=== PATIENT | female | born 1960 | race Caucasian/White ===

== ENCOUNTER 2016-10-23 07:35 | Day surgery (SDC) | payer BC ==
--- NOTE | 2016-10-22 13:33 | HISTORY AND PHYSICAL ---
ADMITTED: 10/23/2016 HISTORY OF PRESENT ILLNESS: The patient is a 56-year-old female who presents with a painful right foot. She carried out a bunion of the distal metatarsal osteotomy on 10/11/2015, says that it is healing great. She just noted now that it is starting to feel like it is blocking and she is now also describing pain on the outside of her right foot as well. MEDICAL/SURGICAL HISTORY: Past medical history includes a history of hypertension, elevated cholesterol, pneumonia. Surgical history, varicose veins, blepharoplasty and bilateral foot surgery. PRIMARY CARE PROVIDER: Debby Goode MD MEDICATIONS: 1. Atorvastatin 20 mg tab 1 by mouth daily. ALLERGIES: 1. BACITRACIN 2. NEOMYCIN. 3. POLYMYXIN. SOCIAL HISTORY: She is . Former smoker, drinks socially. FAMILY HISTORY: Positive for hypertension. REVIEW OF SYSTEMS: A 10-point review of systems noncontributory to chief complaint. PHYSICAL EXAMINATION: GENERAL: The patient is oriented x3. HEAD AND NECK: PERRLA. Normocephalic. Pupils reactive to light. HEART: Regular rate and rhythm. Regular S1 and S2. No murmurs or gallops. LUNGS: Clear to auscultation. No wheezes, rhonchi, or rales. ABDOMEN: Soft, tender, nondistended. No palpable masses. Normal tones. LOWER EXTREMITY: Vascular: DP and PT pulses are palpable. Skin texture and turgor are well within normal limits. Subpapillary venous plexus capillary refill within normal limits. Orthopedically, there is crepitus in the right first MTP. There is less than 20 degrees of dorsiflexion noted. There is very prominent lateral eminence of the fifth MTP. Gait is antalgic. LAB/IMAGING: Imaging reveals a sagittal plane elevatus of the first metatarsal head, under fluoroscopy, there is noted abutment of range of motion. Hardware is in place with no complications. Laterally, there was a projection of the fifth metatarsal head and deviation of the fifth MTP. IMPRESSION: 1. Hallux limitus, grade 1. 2. Tailor's bunion or bunionette. PLAN: The patient is consented for a cheilectomy of the right first metatarsal and a fifth metatarsal osteotomy. There are no contraindications to surgery at this time. Surgery is scheduled for an outpatient basis on 10/23/2016.
[~2016-10-23] VITALS: Ht 177.8 cm; Wt 91.4 kg
[~2016-10-23 07:35] MED LIST: ADVIL200 M1 PO; ATORVASTATIN CA20 MG PO; FISH OIL1000 M1; HAIR/SKIN/NAILS PO; LISINOPRIL20 MG PO; OMEGA 3 KRILL OIL PO; TRIAMCINOLONE A0.11; VITAMIN B12100 MCG PO; VITAMIN D-31000 UNIT PO
--- NOTE | 2016-10-23 08:12 | NUR ---
PATIENT ASSESSMENT AND MED/ALLERGY REVIEW COMPLETE. VITALS STABLE. EKG AND LABS OBTAINED. SURGICAL SITE MARKED BY PATIENT. IV STARTED IN L WRIST WITH 1 ATTEMPT. LR INFUSING ON PUMP AT 50ML/HR. PREOP INSTRUCTIONS DISCUSSED. QUESTIONS ENCOURAGED AND ANSWERED BY RN. WILL CONTINUE TO MONITOR.
--- NOTE | 2016-10-23 10:55 | Provider's Discharge Care Plan ---
Problem, Goal, Plan Problem List 1. Hallux valgus (acquired), right foot Goals: Improve function Instructions: Follow up as directed
--- NOTE | 2016-10-23 10:55 | Provider's Discharge Care Plan ---
Problem, Goal, Plan Problem List 1. Hallux valgus (acquired), right foot Goals: Improve function Instructions: Follow up as directed
--- NOTE | 2016-10-23 11:17 | NUR ---
PT IS AWAKE. PT DENIES NAUSEA. PT RIGHT FOOT PAIN IS 6/10 ON A SCALE FROM 0-10. FENTANYL 50 MCG IV X3 Q 5-10 MIN WAS GIVEN FOR PAIN RELIEF. RIGHT FOOT IS ELEVATED ON A PILLOW, ICE PLACED BEHING PT'S RIGHT KNEE PER MD ORDER. PT IS RESTING COMFORTABLY IN STRETCHER.VSS. RIGHT FOOT DRESSING IS CLEAN AND DRY. RIGHT FOOT X-RAY DONE IN PACU.
--- NOTE | 2016-10-23 11:25 | DIAGNOSTIC IMAGING REPORT ---
PROCEDURE: XR FOOT 3 VIEWS - RIGHT INDICATION: POST-OP- IN PACU TECHNIQUE: Three views. COMPARISON: Right foot x-ray 10/11/2015 FINDINGS: New distal right fifth metatarsal corrective osteotomy with a single screw and normal alignment of the fifth ray. Prior bunionectomy and corrective osteotomy of the distal first metatarsal fixated with two screws. Mild first MTP joint degenerative changes. IMPRESSION: 1. Distal left fifth metatarsal corrective osteotomy 2. Prior bunionectomy and first metatarsal corrective osteotomy
--- NOTE | 2016-10-23 11:45 | OPERATIVE REPORT ---
DATE OF SURGERY: 10/23/2016 SURGEON: Dipak Vaca DPM PREOPERATIVE DIAGNOSES: 1. Hallux limitus, grade 1 2. Painful tailor's bunion, bunionette, right foot POSTOPERATIVE DIAGNOSES: 1. Hallux limitus, grade 1 2. Painful tailor's, bunionette, right foot PROCEDURE PERFORMED: 1. Fifth distal metatarsal osteotomy with rigid internal fixation 2. Cheilectomy right first metatarsophalangeal ANESTHESIA: General. HEMOSTASIS: Achieved by pneumatic ankle tourniquet inflated to 250 mmHg pressure. TOURNIQUET TIME: 60 minutes. MATERIALS: Used 3-0 and 4-0 Polysorb, 4-0 Biosyn and one 2.5 headless compression screw by Arthrex 13 mm in length. INJECTABLES: 20 mL of 0.5% bupivacaine plain. COMPLICATIONS: None. CONDITION: The patient tolerated anesthesia and procedure well. INDICATIONS: The patient is a pleasant 56-year-old female who has a painful range of motion of the first MTP of the right. Successfully carried out distal metatarsal osteotomy several years ago; however, it has become progressively more stiff and painful. States she is now is getting pain on the outside of the right foot. In office x- rays revealed a slight first ray elevatus, particularly at the metatarsal head, rectus in the transverse plane is slightly elevated distally. There is also a prominent fifth metatarsal head laterally. She is well aware of the planned procedures are no contraindications to surgery at this time. SURGICAL TECHNIQUE: The patient was brought to the operating room and placed on the table in the supine position. A pneumatic tourniquet was then placed above the right ankle. General anesthetic was administered, right lower extremity was prepped and draped in normal sterile fashion. An intraoperative pause was carried out for positive identification, proper limb, and consent form verified and confirmed, as well as administration of the IV antibiotic. An Esmarch bandage was then utilized to exsanguinate the limb, the tourniquet was then inflated. Attention was directed to procedure #1. Fifth metatarsal distal osteotomy with rigid internal fixation: A linear incision was made on the dorsal lateral aspect of the fifth MTP. It was deepened by sharp and blunt dissection. A capsular incision was made, lateral collateral ligament was released. The long extensor tendon was retracted medially. The hypertrophied lateral eminence was excised via sagittal saw. A guidewire was then driven at the surgical neck transversely and perpendicular to the long axis creating an axis for a triplanar correction. Osteotomy was carried out with an extended long plantar wing. The capital fragment was dislodged and then impacted in the desired and translated desired position in all 3 planes. It was then fixated with standard AO techniques with a 2.5 headless compression screw driven from dorsal proximal to plantar distally. Redundant metatarsal medially was excised. Verified under fluoroscopy for proper placement and anatomical position of the fifth MTP. The area was flushed. The capsule and periosteum were reapproximated with 3-0 Polysorb, subcutaneous with 4-0 and skin edges reapproximated in a running fashion with 4- 0 Biosyn. Attention was then directed to procedure #2. Cheilectomy right first MTP: At this time, a linear incision was made extending along the previous incision and it was taken down to bone. There were significant adhesions noted and irregular scar tissue. The collateral ligament was released medially. Bent Hohmanns were then placed medially and laterally and the capsule incised at the joint. Metatarsal elevators were then utilized to free up the adherence of the sesamoid plantarly. A sagittal saw was then used dorsally and medially to excise the hypertrophied bone. Bone rongeur was then utilized to resect the abnormal border of the dorsal aspect of the base of the proximal phalanx. The area was copiously lavaged and flushed. Capsule was reapproximated with 3-0 Polysorb, the subcutaneous with 4-0, skin edges reapproximated in a running fashion with 4-0 Biosyn. The area was then locally anesthetized with the aforementioned 20 mL of 0.5% bupivacaine plain. The tourniquet was released with reactive hyperemia and good digital perfusion with light compressive dressing applied. The patient tolerated anesthesia and procedure well and left the operating room with vital signs stable. While in recovery, written instructions of touchdown weightbearing with aid of appropriate fracture shoe. Prognosis is guarded. She will be discharged home in stable condition.
--- NOTE | 2016-10-23 12:09 | NUR ---
PATIENT BACK FROM OR- NAUSEATED AND DRY HEAVING. PATIENT ON O2 AND HAS QUEASE EASE ON HAND. R LOWER EXTREMITY ELEVATED WITH ICE APPLIED. COMPLAINT OF 5.5/10 PAIN. 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 WILL CONTINUE TO MONITOR.
--- NOTE | 2016-10-23 13:06 | NUR ---
PATIENT NAUSEATED WITH NARCOTIC PAIN MEDS. SCOPALOMINE PATCH IN PLACE. PATIENT'S NAUSEA BEGINNING TO SUBSIDE. TOLERATING ICE CHIPS. ORDER OBTAINED FROM DR REAL FOR KETOROLAC 30MG IV FOR PAIN CONTROL. WILL CONTINUE TO MONITOR.
--- NOTE | 2016-10-23 13:43 | NUR ---
PATIENT WOKE FROM SLEEPING AND NOW STATES SHE IS NO LONGER NAUSEATED AND IS "FEELING MUCH BETTER." PATIENT STATES PAIN HAS IMPROVED WELL. TRIALING PATIENT ON SALTINE CRACKERS. VITALS STABLE. WILL CONTINUE TO MONITOR.
--- NOTE | 2016-10-23 14:14 | NUR ---
PATIENT DEPARTED SCU WITH FRIEND AT 1413. VITALS STABLE. DENIES NAUSEA AT THIS TIME. ABLE TO AMBULATE UNASSISTED. IV DISCONTINUED. DISCHARGE INSTRUCTIONS DISCUSSED, INCLUDING WOUND/DRESSING CARE, PAIN MANAGEMENT AND SIGNS/SYMPTOMS TO REPORT. PATIENT VERBALIZED GOOD UNDERSTANDING OF INSTRUCTIONS AND DEPARTED VIA WHEELCHAIR.
[2016-10-23 14:23] VITALS: BP 123/80
== END 2016-10-23 14:13 | disposition home or self-care (01) ==
LOC: OR SRH 07:35 → SCU SRH 07:37 → OR SRH 09:30
PROVIDERS: Podiatrist
PROC: 0QBQ0ZZ Excision of Right Toe Phalanx, Open Approach (ICD-10-PCS; principal; 2016-10-23 09:30)
PROC: 0QBN0ZZ Excision of Right Metatarsal, Open Approach (ICD-10-PCS; principal; 2016-10-23 09:30)
PROC: 0QSN04Z Reposition Right Metatarsal with Internal Fixation Device, Open Approach (ICD-10-PCS; principal; 2016-10-23 09:30)
DX: M20.5X1 Other deformities of toe(s) (acquired), right foot (principal); M21.621 Bunionette of right foot; I10 Essential (primary) hypertension